=== PATIENT | male | born 1980 | race Caucasian/White ===

== ENCOUNTER 2016-12-02 21:03 | Emergency (ER) | payer MEDICAID ==
[~2016-12-02] VITALS: Ht 175.3 cm; Wt 90.3 kg
[~2016-12-02 21:03] MED LIST: METH500T97 PO; OXYC-307 PO
[2016-12-02] MEDS ORDERED: DIHYDROERGOTAMINE 1 MG/ML, 1ML IM ONE (22:30)
[2016-12-02] MEDS ORDERED: KETOROLAC 30 MG/1 ML IM ONE (22:30)
[2016-12-02] MEDS ORDERED: PROCHLORPERAZINE 5 MG/ML, 2ML IM ONE (22:30)
[2016-12-02] MEDS ORDERED: DIPHENHYDRAMINE 50 MG/ML, 1ML IM ONE (22:30)
[2016-12-02] MEDS ORDERED: PROCHLORPERAZINE 5 MG/ML, 2ML ONE (22:38)
[2016-12-02] MEDS ORDERED: DIPHENHYDRAMINE 50 MG/ML, 1ML ONE (22:39)
[2016-12-02] MEDS ORDERED: KETOROLAC 30 MG/1 ML ONE (22:39)
[2016-12-02 23:22] VITALS: BP 130/88
[2016-12-02] MEDS ORDERED: NAPR250T6 PO (23:24)
== END 2016-12-03 | disposition home or self-care (01) ==
LOC: ED 23:41
DX: G43.111 Migraine with aura, intractable, with status migrainosus (principal); F17.200 Nicotine dependence, unspecified, uncomplicated; Z88.1 Allergy status to other antibiotic agents; Z88.6 Allergy status to analgesic agent
CPT/HCPCS: 70450; 96372; 99284; J0780; J1110; J1200; J1885

== ENCOUNTER 2017-02-15 14:40 | Emergency (ER) | payer MEDICAID ==
[~2017-02-15] VITALS: Ht 175.3 cm; Wt 86.4 kg
[~2017-02-15 14:40] MED LIST changes: +NAPR250T6 PO
[2017-02-15 14:45] VITALS: BP 110/73
== END 2017-02-15 15:36 | disposition home or self-care (01) ==
LOC: ED 15:32
DX: J20.8 Acute bronchitis due to other specified organisms (principal); J02.8 Acute pharyngitis due to other specified organisms
CPT/HCPCS: 71020; 93005; 99284

== ENCOUNTER 2017-04-30 20:25 | Emergency (ER) | payer MEDICAID ==
[~2017-04-30] VITALS: Ht 175.3 cm; Wt 92.2 kg
[2017-04-30 21:05] LABS: BASOPHILS # (AUTO) 0.04 x10^3/uL (0-0.1); BASOPHILS % (AUTO) 1 % (0-1); EOSINOPHILS # (AUTO) 0.19 x10^3/uL (0-0.4); EOSINOPHILS % (AUTO) 2 % (1-7); LYMPHOCYTES # (AUTO) 2.54 x10^3/uL (1-3.4); LYMPHOCYTES % (AUTO) 30 % (22-44); MD NO; MEAN CORPUSCULAR HEMOGLOBIN 31.9 pg (27.5-34.5); MEAN CORPUSCULAR HGB CONC 34.5 g/dL (33.2-36.2); MEAN CORPUSCULAR VOLUME 92.6 fL (81-97); MEAN PLATELET VOLUME 7.4 fL (7.4-10.4); MONOCYTES # (AUTO) 0.53 x10^3/uL (0.2-0.8); MONOCYTES % (AUTO) 6 % (2-9); NEUTROPHILS # (AUTO) 5.29 x10^3/uL (1.8-6.8); NEUTROPHILS % (AUTO) 62 % (42-75); PLATELET COUNT 380 x10^3/uL (130-400); RED BLOOD COUNT 3.89 x10^6/uL (4.38-5.82); RED CELL DISTRIBUTION WIDTH 13.7 % (9.4-14.8)
[2017-04-30 21:16] LABS: ALBUMIN 3.4 g/dL (3.4-5.0); ANION GAP 7 mmol/L (5-15); CALCIUM 8.7 mg/dL (8.5-10.1); CHLORIDE 107 mmol/L (98-107); CREATININE 0.68 mg/dL (0.7-1.3)
[2017-04-30 21:19] LABS: TROPONIN I < 0.015 ng/mL (0.000-0.045)
[2017-04-30] MEDS ORDERED: KETOROLAC 30 MG/1 ML ONE (21:19)
[2017-04-30] MEDS ORDERED: KETOROLAC 30 MG/1 ML IM ONE (21:30)
[2017-04-30 22:07] VITALS: BP 99/54
== END 2017-04-30 22:14 | disposition home or self-care (01) ==
LOC: ED 22:04
DX: J20.8 Acute bronchitis due to other specified organisms (principal); E86.0 Dehydration; B34.9 Viral infection, unspecified; F17.210 Nicotine dependence, cigarettes, uncomplicated
CPT/HCPCS: 36415; 71045; 80048; 82040; 84484; 85025; 93005; 96372; 99285; J1885

== ENCOUNTER 2017-08-29 19:47 | Emergency (ER) | payer MEDICAID ==
[~2017-08-29] VITALS: Ht 177.8 cm; Wt 90.0 kg
[2017-08-29] MEDS ORDERED: PROCHLORPERAZINE 5 MG/ML, 2ML ONE (20:13)
[2017-08-29] MEDS ORDERED: KETOROLAC 30 MG/1 ML ONE (20:13)
[2017-08-29] MEDS ORDERED: DIPHENHYDRAMINE 50 MG/ML, 1ML ONE (20:13)
[2017-08-29] MEDS ORDERED: PROCHLORPERAZINE 5 MG/ML, 2ML IVPush ONE (20:30)
[2017-08-29] MEDS ORDERED: SODIUM CHLORIDE FLUSH 10ML SYR IVF ONE (20:30)
[2017-08-29] MEDS ORDERED: KETOROLAC 30 MG/1 ML IVPush ONE (20:30)
[2017-08-29] MEDS ORDERED: DIPHENHYDRAMINE 50 MG/ML, 1ML IVPush ONE (20:30)
[2017-08-29 21:18] VITALS: BP 107/72
== END 2017-08-29 21:56 | disposition home or self-care (01) ==
LOC: ED 21:50
DX: G43.019 Migraine without aura, intractable, without status migrainosus (principal); F17.200 Nicotine dependence, unspecified, uncomplicated
CPT/HCPCS: 96374; 96375; 99284; J0780; J1200; J1885

== ENCOUNTER 2017-10-13 18:18 | Emergency (ER) | payer MEDICAID ==
[~2017-10-13] VITALS: Ht 175.3 cm; Wt 92.7 kg
[2017-10-13] MEDS ORDERED: ONDANSETRON 2MG/ML, 2ML ONE (19:22)
[2017-10-13] MEDS ORDERED: MORPHINE SULFATE 4 MG/ML, 1ML ONE (19:23)
[2017-10-13] MEDS ORDERED: ONDANSETRON 2MG/ML, 2ML IVPush ONE (19:30)
[2017-10-13] MEDS ORDERED: MORPHINE SULFATE 4 MG/ML, 1ML IVPush PRN (19:30)
[2017-10-13 19:31] LABS: BASOPHILS # (AUTO) 0.05 x10^3/uL (0-0.1); BASOPHILS % (AUTO) 1 % (0-1); EOSINOPHILS # (AUTO) 0.06 x10^3/uL (0-0.4); EOSINOPHILS % (AUTO) 1 % (1-7); LYMPHOCYTES # (AUTO) 1.95 x10^3/uL (1-3.4); LYMPHOCYTES % (AUTO) 24 % (22-44); MD NO; MEAN CORPUSCULAR HEMOGLOBIN 31.6 pg (27.5-34.5); MEAN CORPUSCULAR HGB CONC 34.4 g/dL (33.2-36.2); MEAN CORPUSCULAR VOLUME 91.7 fL (81-97); MEAN PLATELET VOLUME 7.6 fL (7.4-10.4); MONOCYTES # (AUTO) 0.51 x10^3/uL (0.2-0.8); MONOCYTES % (AUTO) 6 % (2-9); NEUTROPHILS # (AUTO) 5.48 x10^3/uL (1.8-6.8); NEUTROPHILS % (AUTO) 68 % (42-75); PLATELET COUNT 322 x10^3/uL (130-400); RED BLOOD COUNT 4.41 x10^6/uL (4.38-5.82); RED CELL DISTRIBUTION WIDTH 13.3 % (9.4-14.8)
[2017-10-13 19:40] LABS: ALANINE AMINOTRANSFERASE 21 U/L (12-78); ALBUMIN 3.9 g/dL (3.4-5.0); ANION GAP 9 mmol/L (5-15); CHLORIDE 108 mmol/L (98-107); CREATININE 0.77 mg/dL (0.7-1.3)
[2017-10-13 19:42] LABS: ALKALINE PHOSPHATASE 89 U/L (45-117); BILIRUBIN,TOTAL 0.3 mg/dL (0.2-1.0); TOTAL PROTEIN 8.1 g/dL (6.4-8.2)
[2017-10-13] MEDS ORDERED: OMNIPAQUE 350 MG/ML, 100ML BOTTLE ONE (20:05)
[2017-10-13 21:03] VITALS: BP 129/81
== END 2017-10-13 21:05 | disposition home or self-care (01) ==
LOC: ED 20:59
DX: K52.9 Noninfective gastroenteritis and colitis, unspecified (principal); K62.89 Other specified diseases of anus and rectum
CPT/HCPCS: 36415; 74177; 80053; 83690; 85025; 96374; 96375; 99285; J2405; Q9967

== ENCOUNTER 2018-03-08 17:31 | Emergency (ER) | payer SELFPAY ==
[~2018-03-08] VITALS: Ht 175.3 cm; Wt 95.0 kg
[2018-03-08 17:34] VITALS: BP 147/87
--- NOTE | 2018-03-08 17:45 | NUR ---
ANGIE RN: PT AMBULATED INDEPENDENTLY TO RME 10 FROM [facility] IN [place]
== END 2018-03-08 18:38 | disposition home or self-care (01) ==
LOC: ED 18:20
DX: S93.492A Sprain of other ligament of left ankle, initial encounter (principal); F17.200 Nicotine dependence, unspecified, uncomplicated; X50.1XXA Overexertion from prolonged static or awkward postures, initial encounter; Y93.89 Activity, other specified; Y92.89 Other specified places as the place of occurrence of the external cause; Y99.8 Other external cause status
CPT/HCPCS: 99283

== ENCOUNTER 2018-09-23 17:38 | Emergency (ER) | payer SELFPAY ==
[~2018-09-23] VITALS: Ht 175.3 cm; Wt 96.5 kg
[2018-09-23 17:39] VITALS: BP 125/88
== END 2018-09-23 18:32 | disposition home or self-care (01) ==
LOC: ED 18:26
DX: K02.9 Dental caries, unspecified (principal)
CPT/HCPCS: 99283